=== PATIENT | male | born 1995 | race Caucasian/White ===

== ENCOUNTER 2023-03-27 19:22 | Emergency (ER) | payer OTHER ==
[2023-03-27 19:30] VITALS: BP 165/90; PULSE 71; RESP 18; TEMP 98.2; BMI 34.3
[2023-03-27 21:24] LABS: POTASSIUM 3.7 mmol/L (3.5-5.1)
[2023-03-27 21:26] LABS: CALCIUM 8.8 mg/dL (8.5-10.1)
[2023-03-27 21:27] LABS: ALBUMIN 4.1 g/dl (3.4-5.0); BLOOD UREA NITROGEN 14.9 mg/dL (7-18)
[2023-03-27 21:31] LABS: BILIRUBIN,TOTAL 0.6 mg/dL (0.2-1); TOT PROT 7.1 g/dl (6.4-8.2)
== END 2023-03-28 02:55 | disposition home or self-care (01) ==
LOC: JERFT 19:22 → JER 19:22
DX: H93.12 Tinnitus, left ear (principal)
CPT/HCPCS: 36415; 70496-TC; 70498-TC; 80053; 99285-25; Q9967